=== PATIENT | male | born 1970 | race African-American/Black ===

== ENCOUNTER 2017-09-09 07:42 | Day surgery (SDC) | payer OTHER ==
[~2017-09-09] VITALS: Ht 170.2 cm; Wt 99.8 kg
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
--- NOTE | ~2017-09-09 | OP ---
PATIENT NAME: MARLON LEZAMA MEDICAL RECORD: [id number] :72 LOCATION:[facility] ADMISSION DATE: SURGEON: GATO KHALIL MD DATE OF OPERATION: 09/09/2017 PREOPERATIVE DIAGNOSES: Subcutaneous mass, left lower quadrant. POSTOPERATIVE DIAGNOSIS: Lipoma, left lower quadrant. PROCEDURE: Excision of lipoma, left lower quadrant. SURGEON: Gato Khalil MD GAS PIPE LAYER: None. BLOOD LOSS: Minimal. ANESTHESIA: General. COMPLICATIONS: None. The risks, possible complications, and alternatives to procedure were explained to the patient. He elects to proceed. OPERATIVE COURSE: The patient was conveyed to the operating room electively on 09/09/2017. General anesthesia was induced by the anesthesia staff. The abdomen and flank on the left were sterilely prepped and draped. An incision was accomplished over the lipoma. I dissected down to lipomatous tissue, which was lobulated. This was removed in its entirety. The surrounding connective tissue was excised in a piecemeal fashion. Meticulous hemostasis was achieved with electrocautery. The Tika was then added to the wound for additional hemostasis. The deep adipose tissue was closed with 3-0 Vicryls. The subcutaneous adipose tissue was closed with interrupted 3-0 Vicryls. The skin was approximated with a running intracuticular 3-0 Vicryl. Dermabond, benzoin, and Steri-Strips were applied. The patient was then extubated and conveyed to post-anesthesia care unit where he was in stable condition. There is no need for him to follow up with me in the office unless he develops a complication related to this operative procedure. I will see the patient on a p.r.n. basis. TRANSINT:[id number] Voice Confirmation ID: [id number] DOCUMENT ID: [id number] GATO KHALIL MD at 1454 CC: [id number] DICTATION DATE: 09/09/17 170 SENIOR QUANTITY SURVEYOR: 09/09/17 1751 [facility] 09/09/[address] [id number]
[2017-09-09] MEDS ORDERED: ZESTRIL40 MG PO (09:14)
[2017-09-09] MEDS ORDERED: NORVASC5 MG PO (09:14)
[2017-09-09] MEDS ORDERED: BAYER CHEWABLE81 MG PO (09:15)
[2017-09-09] MEDS ORDERED: FUROSEMIDE40 MG PO (09:15)
[2017-09-09] MEDS ORDERED: LOSARTAN POTASS25 MG PO ×2 (09:16→09:17)
[2017-09-09] MEDS ORDERED: NEURONTIN600 MG PO (09:16)
[2017-09-09] MEDS ORDERED: NORTRIPTYLINE H50 MG PO (09:17)
[2017-09-09] MEDS ORDERED: ZOFRAN4 MG PO (09:18)
[2017-09-09] MEDS ORDERED: ZOCOR20 MG PO (09:18)
[2017-09-09] MEDS ORDERED: HYTRIN10 MG PO (09:19)
[2017-09-09] MEDS ORDERED: ULTRAM50 MG PO (09:19)
[2017-09-09 09:51] VITALS: BP 157/116; Ht 170.2 cm; Wt 99.8 kg
[2017-09-09 10:23] LABS: HEMATOCRIT 38.2 % (42.0-54.0); HEMOGLOBIN 12.9 g/dL (13.5-17.5); MCH 30.7 pg (26.0-34.0); MCHC 33.8 g/dL (31.0-37.0); MEAN PLATELET VOLUME 9.9 fL (7.4-10.4); RBC 4.2 10x6/uL (4.20-6.10); RDW 11.8 % (11.5-14.5); WBC 2.7 10x3/uL (4.8-10.8)
== END 2017-09-09 16:40 | disposition home or self-care (01) ==
LOC: D.OPS 07:42
PROVIDERS: Anesthesiology
DX: R22.2 Localized swelling, mass and lump, trunk (principal); I10 Essential (primary) hypertension; F41.8 Other specified anxiety disorders; Z01.812 Encounter for preprocedural laboratory examination